=== PATIENT | male | born 1950 | race African-American/Black ===

== ENCOUNTER 2017-03-14 14:00 | Inpatient (IN) | payer OTHER ==
[~2017-03-14] VITALS: Ht 172.7 cm; Wt 70.3 kg
--- NOTE | ~2017-03-14 | PN ---
Unit #: [id number] #: [id number] Patient: RUTH SCHULER [id number] [facility] [address] [place] [address] [id number] I MR#: [id number] NAME: RUTH SCHULER. ROOM: 16 Age: 67 Sex: M Admission Date: 03/14/2017 : 1950 Attending Physician: Olga Rodríguez M.D. Admitting Physician: Olga Rodríguez M.D. Primary Care Physician: Primary Care Physician Kesha BERRIOS PROGRESS NOTES DATE March 19, 2017 DISCUSSION Mr. Schuler is a 67-year-old male, who was seen today and chart was reviewed and the case was discussed with the staff. He has been anxious, withdrawn, and rather seclusive to himself. Meanwhile, he has been cooperative with the treatment recommendations and he has been taking the medications and tolerating them fairly well with no reported side effects. MENTAL STATUS EXAMINATION An elderly male, who was casually dressed with fair personal hygiene and appears to be in no acute distress or discomfort. He was awake and alert with impaired attention and concentration. His mood is anxious with a congruent affect. His speech is slow and restricted in content. He denies any suicidal or homicidal ideations, and also denies any auditory or visual hallucinations. His insight and judgment remain slightly impaired. TREATMENT PLAN 1. We will continue him on his current medications and treatment protocol, and will monitor his response to the medications, and make further adjustments as needed. 2. We will continue to followup. Dictated by... Ermias Hope/janelle TD: 03/20/2017 11:47 JOB #: [id number] Unit #: [id number] #: [id number] Patient: RUTH SCHULER PROGRESS NOTES Page 1 of 1 X Olga Rodríguez MD PROGRESS NOTE
--- NOTE | ~2017-03-14 | PN ---
Unit #: [id number] #: [id number] Patient: MAIKEL SCHULER [id number] [facility] [address] [place] [address] [id number] I MR#: [id number] NAME: MAIKEL SCHULER. ROOM: [facility] Age: 67 Sex: M Admission Date: 03/14/2017 : 1950 Attending Physician: Olga Rodríguez M.D. Admitting Physician: Olga Rodríguez M.D. Primary Care Physician: Primary Care Physician Kesha CARRION NOTES DATE 03/21/2017 DISCUSSION Maikel Schuler is a 67-year-old male, seen on 03/21/2017. The patient interviewed, chart reviewed, and obtained information from the nursing staff. The patient continues to be guarded, flat affect, anxious, confused, paranoid, tolerating medication fairly well. The patient needing redirection. health problems with cognitive deficit. Medication compliant. No side effects to medications. REVIEW OF SYSTEMS Complete review of systems unremarkable. MENTAL STATUS EXAMINATION General appearance: Patient dressed casually. Attention span and concentration, poor. Oriented in self. Mood and affect, labile. Speech, rapid. Thought process, circumstantial. The patient is guarded, paranoid but denied any thoughts of harming self or others. Recent and remote memory, poor. Insight and judgment, poor. DIAGNOSES 1. Psychosis, NOS. 2. 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 ASSESSMENT/PLAN Advised to continue with the current medication and therapeutic protocol, and we will work with the manager social services about appropriate placement. Continue with the inpatient programming at this time. Dictated by... Ermias Mcintosh/janelle TD: 03/22/2017 10:59 JOB #: [id number] Unit #: [id number] #: [id number] Patient: MAIKEL SCHULER PROGRESS NOTES Page 1 of 1 X Allan Bland MD PROGRESS NOTE
--- NOTE | ~2017-03-14 | PN ---
Unit #: [id number] #: [id number] Patient: RUTH SCHULER [id number] [facility] [address] [place] [address] [id number] I MR#: [id number] NAME: RUTH SCHULER. ROOM: 16 Age: 67 Sex: M Admission Date: 03/14/2017 : 1950 Attending Physician: Olga Rodríguez M.D. Admitting Physician: Olga Rodríguez M.D. Primary Care Physician: Primary Care Physician Kesha CARRION NOTES DATE 03/18/2017 DISCUSSION Mr. Schuler is a 67-year-old, male who was seen today and chart was reviewed and case was discussed with the staff. He has been anxious, withdrawn, unkempt, disheveled, disorganized and rather seclusive to himself with thought blocking, paranoia and looseness of association and has been difficult to carry on any meaningful conversation. Meanwhile, he has been taking medications and tolerating them fairly well with no reported side effect. MENTAL STATUS EXAM An elderly male who was casually dressed with marginal personal hygiene, appears to be in no acute distress or discomfort. He was awake and alert with impaired attention and concentration. His mood was anxious with congruent affect. His speech was slow and tangential. His thought processes were disorganized with some looseness of associations and paranoid ideations and delusional behavior. His insight and judgement remains significantly impaired. TREATMENT PLAN 1. We will continue him on his current medications and treatment protocol. We will monitor his response to the medication and make further adjustments as needed. 2. We will continue to follow up. Dictated by... Ermias Hope/barrington TD: 03/20/2017 02:54 JOB #: [id number] Unit #: [id number] #: [id number] Patient: RUTH SCHULER YASH CARRION NOTES Page 1 of 1 X Olga Rodríguez MD PROGRESS NOTE
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
--- NOTE | ~2017-03-14 | PN ---
Unit #: [id number] #: [id number] Patient: RUTH TUCKER [id number] [facility] [address] [place] [address] [id number] MR#: [id number] NAME: RUTH TUCKER. ROOM: 16 Age: 67 Sex: M Admission Date: 03/14/2017 : 1950 Attending Physician: Olga Rodríguez M.D. Admitting Physician: Olga Rodríguez M.D. Primary Care Physician: Primary Care Physician Kesha CARRION NOTES DATE OF SERVICE 03/17/2017 DISCUSSION Mr. Tucker is a 67-year-old male who was seen today. Chart was reviewed and case was discussed with the staff. He has been anxious, withdrawn, and rather seclusive to himself. Meanwhile, he has been cooperative with the treatment recommendations and has been exhibiting some persistent psychosis and bizarre behavior. MENTAL STATUS EXAMINATION Middle-aged male who is casually dressed with fair personal hygiene, appears to be in no acute distress or discomfort. He was awake and alert on interaction with intact orientation. His mood is anxious with congruent affect. Speech is slow and restricted in content. His thought processes were disorganized with some looseness of associations and paranoid ideations. His insight and judgment remain significantly impaired. TREATMENT PLAN 1. We will continue him on his current medications and treatment protocol. We will monitor his response to medications and make further adjustments as needed. 2. We will continue to follow up. Dictated by... Olga Rodríguez M.D. IAA/bzg TD: 03/17/2017 09:39 JOB #: [id number] Unit #: [id number] #: [id number] Patient: RUTH TUCKER PROGRESS NOTES Page 1 of 1 X Olga Rodríguez MD PROGRESS NOTE
--- NOTE | ~2017-03-14 | DS ---
Unit #: [id number] #: [id number] Patient: RUTH TUCKER [id number] [facility] [address] [place] [address] [id number] I MR#: [id number] NAME: RUTH TUCKER. ROOM: [facility] Age: 67 Sex: M Admission Date: 03/14/2017 : 1950 Discharge Date: 03/22/2017 Attending Physician: Olga Rodríguez M.D. Primary Care Physician: Primary Care Physician No DISCHARGE SUMMARY REASON FOR ADMISSION Detox. DIAGNOSTIC STUDIES LABORATORY RESULTS: Remarkable for glucose 192, AST 89, ALT 62, albumin 3.1. Urine drug screen positive for barbiturates. HOSPITAL COURSE The patient was admitted to inpatient unit on 03/14/2017 and discharged on 03/22/2017. The patient was treated with behavior management, medication management, structured milieu. The patient came due to altered mental status. The patient had minimal participation in programming, but cooperative and showed improvement. Subsequently, the patient was discharged with a plan to follow up in outpatient program. DISCHARGE MEDICATIONS Phenobarbital 64.8 mg daily for seizure, Cogentin 1 mg b.i.d. for EPS symptom, Risperdal 1 mg b.i.d. for psychosis, Vimpat 200 mg b.i.d. for seizure disorder, Os-Anastacio 500+D 500 mg daily for supplement, Zonegran 400 mg daily for seizure, furosemide 20 mg daily for hypertension. DISCHARGE DIAGNOSES Psychiatric: Schizoaffective disorder, bipolar type, F25.9; cocaine use disorder, severe; rule out major neurocognitive disorder secondary to Alzheimer disease with behavior disturbances, F02.81. Secondary diagnosis: Deferred. Medical diagnoses: History of traumatic brain injury, seizure disorder. Stressors: Psychosocial stressors. DISCHARGE INSTRUCTIONS The patient to follow up in outpatient clinic as per social security benefits interviewer. CONDITION ON DISCHARGE The patient was pleasant and cooperative. Denied any psychotic symptom or any suicidal ideation. PROGNOSIS Guarded. DIET AND ACTIVITY Unit #: [id number] #: [id number] Patient: RUTH TUCKER As tolerated. Dictated by... Allan Bland M.D. ADAMA/dori TD: 03/23/2017 03:15 JOB #: [id number] DISCHARGE SUMMARY Page 1 of 1 X Allan Bland MD X DISCHARGE SUMMARY
--- NOTE | ~2017-03-14 | PN ---
Unit #: [id number] #: [id number] Patient: RUTH SCHULER [id number] [facility] [address] [place] [address] [id number] I MR#: [id number] NAME: RUTH SCHULER. ROOM: [facility] Age: 67 Sex: M Admission Date: 03/14/2017 : 1950 Attending Physician: Olga Rodríguez M.D. Admitting Physician: Olga Rodríguez M.D. Primary Care Physician: Primary Care Physician Kesha CARRION NOTES DATE OF SERVICE 03/16/2017 DISCUSSION Mr. Schuler is a 67-year-old male who was seen today. Chart was reviewed and case was discussed with the staff. He was seen to be anxious and withdrawn though appears to be doing somewhat better than yesterday as he was able to get out of his room and walking around and was able to make eye contact and carry on meaningful conversation though appears to be quite compromised, disorganized, with poor personal hygiene. He has been taking the medications and tolerating them fairly well with no reported side effects. MENTAL STATUS EXAMINATION An elderly male who is casually dressed with fair personal hygiene, appears to be in no acute distress or discomfort. He was awake and alert on interaction with intact orientation. His mood is anxious with congruent affect. His speech is slow and restricted in content. His thought processes were disorganized with some looseness of associations and paranoid ideations. His insight and judgment remain significantly impaired. TREATMENT PLAN 1. We will continue him on his current medications and treatment protocol. We will monitor his response and make further adjustments as needed. 2. We will continue to follow up. Dictated by... Ermias Hope/jean TD: 03/16/2017 09:00 JOB #: [id number] Unit #: [id number] #: [id number] Patient: RUTH SCHULER MURALI NOTES Page 1 of 1 X Olga Rodríguez MD PROGRESS NOTE
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
--- NOTE | ~2017-03-14 | PN ---
Unit #: [id number] #: [id number] Patient: RUTH SCHULER [id number] [facility] [address] [place] [address] [id number] MR#: [id number] NAME: RUTH SCHULER. ROOM: 16 Age: 67 Sex: M Admission Date: 03/14/2017 : 1950 Attending Physician: Olga Rodríguez M.D. Admitting Physician: Olga Rodríguez M.D. Primary Care Physician: Primary Care Physician Kesha CARRION NOTES DATE OF SERVICE: 03/15/2017 SUBJECTIVE Mr. Schuler is a 67-year-old male, who was seen today and chart was reviewed and case was discussed with the staff. He has been anxious, withdrawn, and seclusive to himself and has been exhibiting bizarre behavior, looseness of associations and delusional behavior and has been taking medications and tolerating them fairly well with no reported side effects. MENTAL STATUS EXAMINATION An elderly male, who was casually dressed with fair personal hygiene, appears to be in no acute distress or discomfort. He was awake and alert with impaired attention and concentration. His mood was anxious with a congruent affect. His speech was slow and tangential. Thought processes were disorganized with some looseness of associations and flight of ideas. Her insight and judgment remain significantly impaired. TREATMENT PLAN 1. We will continue on his current medications and treatment protocol. We will monitor her response to the medications and make further adjustments as needed. 2. We will continue to follow up. Dictated by... Ermias Hope/dori TD: 03/15/2017 09:33 JOB #: [id number] Unit #: [id number] #: [id number] Patient: RUTH SCHULER YASH PROGRESS NOTES Page 1 of 1 X Olga Rodríguez MD PROGRESS NOTE
--- NOTE | ~2017-03-14 | PN ---
Unit #: [id number] #: [id number] Patient: MAIKEL SCHULER [id number] [facility] [address] [place] [address] [id number] MR#: [id number] NAME: MAIKEL SCHULER. ROOM: [facility] Age: 67 Sex: M Admission Date: 03/14/2017 : 1950 Attending Physician: Olga Rodríguez M.D. Admitting Physician: Olga Rodríguez M.D. Primary Care Physician: Primary Care Physician Kesha CARRION NOTES DATE 03/20/2017 DISCUSSION Maikel Schuler is a 67-year-old male, seen on 03/20/2017. The patient interviewed, chart reviewed, and obtained information from the nursing staff. The patient continues to be guarded, paranoid, disorganized, confused. The patient possibly has a history of dementia, long history of substance abuse. The patient still feels that he is at a healing place. The patient's thoughts were circumstantial, guarded, cognitive impairment noted. REVIEW OF SYSTEMS Complete review of systems unremarkable. MENTAL STATUS EXAMINATION General appearance: Patient dressed casually. Attention span and concentration, poor. Orientation in self. Mood and affect, labile. Speech, rapid. Thought process, circumstantial. Association, guarded, paranoid, confusion, poor memory. Recent and remote memory, poor. Insight and judgment, impaired. DIAGNOSES 1. Schizoaffective disorder, bipolar type. 2. History of cocaine abuse. 3. History of traumatic brain injury. 4. Seizure disorder. 5. Rule out major (1)____ cognitive disorder due to Alzheimer's disease, F02.81. ASSESSMENT/PLAN Advised to continue with the current medication and therapeutic protocol, and if needed consider further adjustment of medication with a plan to change Risperdal to 1 mg b.i.d. Continue with the other medications the same. Dictated by... Allan Bland M.D. Unit #: [id number] #: [id number] Patient: MAIKEL SCHULER ADAMA/janelle TD: 03/22/2017 09:08 JOB #: [id number] YASH CARRION NOTES Page 1 of 1 X Allan Bland MD PROGRESS NOTE
[2017-03-16 12:41] LABS: BASOPHIL% 0.5 % (0-2.5); EOSINOPHIL# 0.1 X10e3 (0-0.7); EOSINOPHIL% 2.3 % (0.0-7.0); HEMATOCRIT 43.4 % (38.0-50.0); HEMOGLOBIN 14.1 gm/dL (13.0-16.0); LYMPHOCYTE% 36.5 % (17.0-45.0); MEAN CELL VOLUME 93.9 FL (83-96); MEAN CORPUSCULAR HEMOGLOBIN 30.5 PG (28-34); MEAN CORPUSCULAR HGB CONC 32.5 g/dL (30-36); MEAN PLATELET VOLUME 10.2 FL (6.5-11.5); MONOCYTE# 0.3 X10e3 (0-1.0); MONOCYTE% 10.6 % (3.0-12.0); NEUTROPHIL# 1.3 X10e3 (1.5-7.1); NEUTROPHIL% 50.1 % (40-75); PLATELET COUNT 71 X10e3 (140-420); RED BLOOD COUNT 4.63 X10e (3.90-5.60); RED CELL DISTRIBUTION WIDTH 14.8 % (11.0-15.5); WHITE BLOOD COUNT 2.6 X10e3 (4.0-10.5)
[2017-03-16 12:59] LABS: ALBUMIN SERUM 3.1 g/dL (3.5-5.0); BILIRUBIN,TOTAL 1.3 mg/dL (0.2-2.0); BUN/CREATININE RATIO 13.33; CALCIUM SERUM 9.4 mg/dL (8.4-10.2); CREATININE SERUM 0.9 mg/dL (0.6-1.4); GLOM FILT RATE Estimated 103.5 mL/min (>60); POTASSIUM 3.7 mmol/L (3.5-5.1); PROTEIN TOTAL SERUM 6.6 g/dL (6.0-8.3)
[2017-03-16 13:04] LABS: DIFF IND YES
[2017-03-16 13:08] LABS: PLATELET ESTIMATE DECREASED (NORMAL)
[2017-03-16 13:09] LABS: ANISOCYTOSIS SL
[2017-03-20 12:32] LABS: URINE APPEARANCE CLEAR; URINE BILIRUBIN NEG (NEG); URINE BLOOD NEG (NEG); URINE COLOR YELLOW; URINE GLUCOSE NEG (NEG); URINE KETONE NEG (NEG); URINE LEUKOCYTE ESTERASE NEG (NEG); URINE NITRATE NEG (NEG); URINE PROTEIN NEG (NEG); URINE SPECIFIC GRAVITY 1.009 (1.003-1.035); URINE UROBILINOGEN 0.2 MG/DL (NEG)
[2017-03-20 13:02] LABS: AMPHETAMINE NEG (NEG); BARBITURATES POS (NEG); BENZODIAZEPINES NEG (NEG); COCAINE NEG (NEG); MARIJUANA NEG (NEG); OPIATES NEG (NEG); TRICYCLIC ANTIDEPRESSANTS NEG (NEG); U METHADONE NEG (NEG)
== END 2017-03-22 16:57 | disposition home or self-care (01) | DRG 885 ==
LOC: P1S 16:06
PROVIDERS: Psychiatry & Neurology Psychiatry
DX: F25.0 Schizoaffective disorder, bipolar type (principal); F14.20 Cocaine dependence, uncomplicated; G30.9 Alzheimer's disease, unspecified; F02.80 Dementia in other diseases classified elsewhere, unspecified severity, without behavioral disturbance, psychotic disturbance, mood disturbance, and anxiety; Z87.820 Personal history of traumatic brain injury; G40.909 Epilepsy, unspecified, not intractable, without status epilepticus; F29 Unspecified psychosis not due to a substance or known physiological condition
CPT/HCPCS: 80053; 80307; 81003; 85025